=== PATIENT | female | born 2000 | race Caucasian/White ===

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

== ENCOUNTER 2023-05-03 13:39 | Emergency (ER) | payer SELFPAY | END 2023-05-03 14:38 | disposition short-term general hospital (02) | LOC: ERS 13:39 | DX: R41.3 Other amnesia (principal); F17.290 Nicotine dependence, other tobacco product, uncomplicated | CPT/HCPCS: 99284 ==